=== PATIENT | female | born 1960 | race Caucasian/White ===

== ENCOUNTER 2016-07-13 10:21 | Day surgery (SDC) | payer BC ==
--- NOTE | ~2016-07-13 | EGD ---
EGD REPORT [facility] [address] [id number] NAME: LENY THOMAS : [birth year] STATUS : REG [facility] [place]#: [id number] AGE: 56 ADM/REG DATE : 07/13/16 MR#: [id number] REPORT SERV DATE: 07/13/16 DICTATED BY: MARY VALENTIN DATE: 07/13/16 REPORT STATUS : Draft TRANSCRIBED BY: [facility] DATE: 07/13/16 Endoscopy Center Patient Name: Leny Thomas Date of : 1960 Attending MD: JONAS VALENTIN MD Procedure Date No Time: 07/13/2016 Procedure: Colonoscopy Indications: Screening for colorectal malignant neoplasm, This is the patient's first colonoscopy Referring MD: GULSHAN DURAN Medicines: See the Anesthesia note for documentation of the administered medications Complications: No immediate complications. Estimated blood loss: None. Procedure: Pre-Anesthesia Assessment: - ASA Grade Assessment: III - A patient with severe systemic disease. After I obtained informed consent, the scope was passed under direct vision. Throughout the procedure, the patient's blood pressure, pulse, and oxygen saturations were monitored continuously. The PCF [id number] was introduced through the anus and advanced to the terminal ileum. The ileocecal valve, appendiceal orifice, terminal ileum and rectum were photographed. The entire colon was examined. The colonoscopy was performed without difficulty. The patient tolerated the procedure well. The quality of the bowel preparation was adequate. Findings: The perianal and digital rectal examinations were normal. The terminal ileum appeared normal. Non-bleeding internal hemorrhoids were found during retroflexion and were Grade I (internal hemorrhoids that do not prolapse). The exam was otherwise without abnormality. Impression: - The examined portion of the ileum was normal. - Non-bleeding internal hemorrhoids. - The examination was otherwise normal. Recommendation: - Patient has a contact number available for emergencies. The signs and symptoms of potential delayed complications were discussed with the patient. Return to normal activities tomorrow. Written discharge instructions were provided to the patient. - Regular diet. - Discharge patient to home. EGD REPORT [address] [address] NAME: LENY THOMAS : [birth year] STATUS : REG [facility] PAT#: [id number] AGE: 56 ADM/REG DATE : 07/13/16 MR#: [id number] REPORT SERV DATE: 07/13/16 DICTATED BY: MARY VALENTIN DATE: 07/13/16 REPORT STATUS : Draft TRANSCRIBED BY: [email or web address] DATE: 07/13/16 - Continue present medications. - Repeat colonoscopy in 10 years for surveillance. Procedure Code(s): --- Professional --- 79427, Colonoscopy, flexible, proximal to splenic flexure; diagnostic, with or without collection of specimen(s) by brushing or washing, with or without colon decompression (separate procedure) Diagnosis Code(s): --- Professional --- K64.0, First degree hemorrhoids Z12.11, Encounter for screening for malignant neoplasm of colon CPT copyright 2013 [employer]. All rights reserved. The codes documented in this report are preliminary and upon ld teacher review may be revised to meet current compliance requirements. JONAS VALENTIN MD 07/13/2016 12:42 PM This report has been signed electronically. Number of Addenda: 0 Note Initiated On: 07/13/2016 11:59 AM Scope Withdrawal Time 0 hours 8 minutes 16 seconds [id number] [id number]
[~2016-07-13 10:21] MED LIST: ASAB PO; ELIQUIS 5 MG TAB5 MG PO; FISH-EPA1000 MG PO; HYGROTON 25 MG25 MG PO; KLOR-CON M2020 MEQ PO; KURIC2 % TOP; LEVOTHYROXIN100 MCG PO; LIPITOR40 PO; LIPITOR80 MG PO; NICODERM C14 MG/24 H TOP; NICODERM C21 MG/241 TOP; NICODERM C7 MG/24 HR TOP; OMEPRAZOLE PO; PRILO PO; TOPXL50 PO; VITAMIN D31000 UNIT PO; VIVELLE-DOT0.1 MG TOP
== END 2016-07-13 23:59 | disposition home or self-care (01) ==
LOC: DMU 10:21
PROVIDERS: Internal Medicine Gastroenterology
PROC: 0DJD8ZZ Inspection of Lower Intestinal Tract, Via Natural or Artificial Opening Endoscopic (ICD-10-PCS; principal; 2016-07-13 12:00)
DX: Z12.11 Encounter for screening for malignant neoplasm of colon (principal); K64.0 First degree hemorrhoids; E66.01 Morbid (severe) obesity due to excess calories; I47.1 Supraventricular tachycardia; I48.91 Unspecified atrial fibrillation; K21.9 Gastro-esophageal reflux disease without esophagitis; E03.9 Hypothyroidism, unspecified; Z79.82 Long term (current) use of aspirin; Z86.73 Personal history of transient ischemic attack (TIA), and cerebral infarction without residual deficits; Z79.899 Other long term (current) drug therapy; Z98.51 Tubal ligation status; Z90.710 Acquired absence of both cervix and uterus; Z98.890 Other specified postprocedural states